=== PATIENT | female | born 1960 | race African-American/Black ===

== ENCOUNTER 2018-04-12 21:06 | Emergency (ER) | payer OTHER ==
[~2018-04-12] VITALS: Ht 162.6 cm; Wt 78.2 kg
[2018-04-12] MEDS ORDERED: LIDOCAINE 1% 10 ML VIAL INJ ONE (21:45)
[2018-04-13 01:05] VITALS: BP 149/82
== END 2018-04-13 01:26 | disposition home or self-care (01) ==
LOC: EMS 21:07
DX: S03.2XXA Dislocation of tooth, initial encounter (principal); S00.03XA Contusion of scalp, initial encounter; S00.31XA Abrasion of nose, initial encounter; S00.511A Abrasion of lip, initial encounter; M19.90 Unspecified osteoarthritis, unspecified site; Z90.89 Acquired absence of other organs; Z85.841 Personal history of malignant neoplasm of brain; Z88.5 Allergy status to narcotic agent; V00.831A Fall from motorized mobility scooter, initial encounter; Y93.55 Activity, bike riding; Y92.89 Other specified places as the place of occurrence of the external cause; Y99.8 Other external cause status
CPT/HCPCS: 70450; 72170; 73120 ×2; 73562; 99284; J3490